=== PATIENT | female | born 1960 ===

== ENCOUNTER 2025-05-26 07:45 | Inpatient (IN) | payer OTHER ==
[~2025-05-26] VITALS: Ht 163.8 cm; Wt 64.9 kg
[2025-05-26] MEDS ORDERED: METHOTREXATE2.5 MG PO (08:37)
[2025-05-26] MEDS ORDERED: DULOXETINE HCL30 MG PO (08:39)
[2025-05-26 09:27] VITALS: BP 139/84
[2025-05-26 09:28] LABS: BASO % 0.5 % (0.1-1.2); EOS # 0.06 (0.04-0.54); EOS % 1.4 % (0.7-7.0); LYMPH # 1.55 (1.18-3.74); LYMPH % 36.8 % (19.3-53.1); MEAN PLATELET VOLUME 10.70 fl (9.4-12.4); MONO # 0.25 (0.24-0.82); MONO % 5.9 % (4.7-12.5); NEUT # 2.32 (1.56-6.13); NEUT % 55.2 % (34.0-71.1); RED CELL DISTRIBUTION WIDTH 12.0 % (11.6-14.4)
[2025-05-26 09:34] LABS: URINE APPEARANCE Clear; URINE BILIRRUBIN Negative (NEGATIVE); URINE BLOOD Negative; URINE COLOR Yellow; URINE GLUCOSE Negative (NEGATIVE); URINE KETONE Trace (NEGATIVE); URINE LEUKOCYTE Negative; URINE NITRATE Negative; URINE PROTEIN Negative (NEGATIVE); URINE UROBILINOGEN 0.2 E.U./dl
[2025-05-26 09:38] LABS: URINE BACTERIA 4.7 uL (0.0-1933); URINE EPITHELIAL CELLS 6.1 uL (0.0-38.8); URINE RBC 3.2 uL (0.0-20.8); URINE WBC 2.4 uL (0.0-23.2)
[2025-05-26 09:42] LABS: URINE CAST 0.43 uL (0.0-1.40)
[2025-05-26 09:56] LABS: INR 1.05
[2025-05-26 10:27] LABS: ALT/SGPT 22.0 U/L (12-78); AST/SGOT 14.0 U/L (15-37); BILIRUBIN TOTAL 0.46 mg/dL (0.3-1.2); BUN CREA RATIO 27.0 (7.0-25.0); CREATININE SERUM 0.71 mg/dL (0.55-1.02); GFR 83.41; GLOBULINA 2.9 G/DL (2.4-3.5); GLUCOSE FASTING 90.0 mg/dL (65-100); OSMOLALITY SERUM 289.0 MOSM/KG (275-295)
[2025-06-07] MEDS ORDERED: LIDOCAINE HCL 1%/EPINEPHRINE 20ML VIAL IJ ONE (08:45)
[2025-06-07] MEDS ORDERED: ISOPROPYL ALCOHOL 30 ML OUNCE TOP ONE (08:45)
[2025-06-07] MEDS ORDERED: BUPIVACAINE HCL 30 ML VIAL IJ ONE (08:45)
[2025-06-07] MEDS ORDERED: KETOROLAC TROMETHAMINE 60 MG VIAL IM ONE (08:45)
[2025-06-07] MEDS ORDERED: TRANEXAMIC ACID 100MG/1ML (1000MG) AMPUL IV ONE (08:45)
[2025-06-07] MEDS ORDERED: CEFAZOLIN SODIUM 1,000 MG VIAL IV ONE (08:45)
[2025-06-07] MEDS ORDERED: SUGAMMADEX SODIUM 200 MG/2 ML VIAL IV ONE (09:30)
[2025-06-07] MEDS ORDERED: ONDANSETRON HCL 2 MG/ML VIAL IV PRN (09:30)
[2025-06-07] MEDS ORDERED: TRAMADOL HCL 50 MG TABLET PO PRN (12:00)
[2025-06-07] MEDS ORDERED: CEFAZOLIN SODIUM 1,000 MG VIAL IV SCH (12:00)
[2025-06-07] MEDS ORDERED: CEFAZOLIN SODIUM 1,000 MG VIAL ONE (12:06)
[2025-06-07] MEDS ORDERED: MORPHINE SULFATE 4 MG/ML VIAL IV SCH (13:00)
[2025-06-07 14:56] VITALS: BP 121/71; O2SAT 92
[2025-06-07 16:09] VITALS: BP 122/66
[2025-06-07] MEDS ORDERED: GABAPENTIN 100 MG CAPSULE PO SCH (21:00)
[2025-06-07] MEDS ORDERED: ORPHENADRINE CITRATE 100 MG TABLET PO SCH (21:00)
[2025-06-08 00:54] VITALS: BP 106/63
[2025-06-08 02:13] LABS: BASO % 0.0 % (0.1-1.2); EOS # 0.04 (0.04-0.54); EOS % 0.7 % (0.7-7.0); LYMPH # 1.17 (1.18-3.74); LYMPH % 21.0 % (19.3-53.1); MEAN PLATELET VOLUME 11.00 fl (9.4-12.4); MONO # 0.52 (0.24-0.82); MONO % 9.4 % (4.7-12.5); NEUT # 3.82 (1.56-6.13); NEUT % 68.7 % (34.0-71.1); RED CELL DISTRIBUTION WIDTH 12.2 % (11.6-14.4)
[2025-06-08] MEDS ORDERED: RIVAROXABAN 10 MG TAB PO SCH (09:00)
[2025-06-08 09:25] VITALS: BP 140/82
[2025-06-08 15:01] LABS: COVID-19 AG NEGATIVE (NEGATIVE)
[2025-06-08 16:00] VITALS: BP 124/63
[2025-06-09 00:11] VITALS: BP 131/76
[2025-06-09 01:37] LABS: BASO % 0.1 % (0.1-1.2); EOS # 0.02 (0.04-0.54); EOS % 0.3 % (0.7-7.0); LYMPH # 1.34 (1.18-3.74); LYMPH % 17.9 % (19.3-53.1); MEAN PLATELET VOLUME 11.00 fl (9.4-12.4); MONO # 0.80 (0.24-0.82); MONO % 10.7 % (4.7-12.5); NEUT # 5.29 (1.56-6.13); NEUT % 70.6 % (34.0-71.1); RED CELL DISTRIBUTION WIDTH 11.9 % (11.6-14.4)
[2025-06-09 08:00] VITALS: BP 123/71
[2025-06-09] MEDS ORDERED: GABAPENTIN100 MG PO (11:52)
[2025-06-09] MEDS ORDERED: NORFLEX100MG PO (11:52)
[2025-06-09] MEDS ORDERED: TRAMADOL HCL50 MG PO (11:52)
[2025-06-09] MEDS ORDERED: XARELTO10 MG PO (11:52)
== END 2025-06-09 15:21 | DRG 470 ==
LOC: SURH 06-07 07:45 → O/R 06-07 08:00 → SURH 06-07 12:30 → OB/GYN 06-07 14:04
PROVIDERS: ADMIT Orthopaedic Surgery; ATTEND Orthopaedic Surgery
PROC: 0QUF0KZ Supplement Left Patella with Nonautologous Tissue Substitute, Open Approach (ICD-10-PCS; 2025-06-07)
PROC: 0SRD0JZ Replacement of Left Knee Joint with Synthetic Substitute, Open Approach (ICD-10-PCS; principal; 2025-06-07 12:30)
DX: M17.12 Unilateral primary osteoarthritis, left knee (principal); M85.662 Other cyst of bone, left lower leg